=== PATIENT | female | born 1950 | race Two or more races ===

== ENCOUNTER 2021-09-28 15:30 | Outpatient (CLI) | payer SELFPAY ==
[~2021-09-28] VITALS: Ht 162.6 cm; Wt 55.9 kg
[2021-09-28 16:15] VITALS: BP 162/90
[2021-09-28] MEDS ORDERED: TIXAGEVIMAB/CILGAVIMAB (EVUSHELD) 150MG-150MG 3ML VIAL (EUA) IM ONE (16:15)
[2021-09-28] MEDS ORDERED: ASPI81CH33 PO (16:48)
[2021-09-28] MEDS ORDERED: LEXA1TAB PO (16:48)
[2021-09-28 17:30] VITALS: BP 142/72
== END 2021-09-28 17:35 | disposition home or self-care (01) ==
LOC: M INFU 15:30
PROVIDERS: ATTEND Internal Medicine Infectious Disease
DX: C85.90 Non-Hodgkin lymphoma, unspecified, unspecified site (principal)

== ENCOUNTER 2021-10-19 14:39 | Outpatient (CLI) | payer SELFPAY ==
[~2021-10-19] VITALS: Ht 152.4 cm; Wt 45.0 kg
[~2021-10-19 14:39] MED LIST: ASPI81CH33 PO; LEXA1TAB PO
[2021-10-19 14:55] VITALS: BP 141/81
[2021-10-19] MEDS ORDERED: TIXAGEVIMAB/CILGAVIMAB (EVUSHELD) 150MG-150MG 3ML VIAL (EUA) IM NO SITE ONE (15:30)
== END 2021-10-19 15:30 | disposition home or self-care (01) ==
LOC: M INFU 14:39
PROVIDERS: ATTEND Internal Medicine Infectious Disease
DX: C83.11 Mantle cell lymphoma, lymph nodes of head, face, and neck (principal)